=== PATIENT | female | born 1975 | race Caucasian/White ===

== ENCOUNTER 2023-08-03 13:38 | Outpatient (CLI) | payer BC | END 2023-08-03 13:39 | disposition home or self-care (01) | LOC: CSHLAB 13:38 | PROVIDERS: ATTEND Family Medicine | DX: Z01.812 Encounter for preprocedural laboratory examination (principal); N84.1 Polyp of cervix uteri | CPT/HCPCS: 84703; 85027; 86850; 86900; 86901 ==

== ENCOUNTER 2023-08-05 11:01 | Day surgery (SDC) | payer BC ==
[2023-08-03 14:05] VITALS: BMI 25.7
[2023-08-03 14:52] LABS: Hematocrit 39.7 % (34.9-44.5); Hemoglobin 13.1 g/dL (12.0-15.5); Mean Corpuscular Hemoglobin 31.4 pg (27.0-33.0); Mean Corpuscular Volume 95.2 fl (81.6-98.3); Mean Platelet Volume 12.2 fl (7.4-10.4); Platelet Count 181 10x3/uL (150-450); RBC Distribution Width 12.8 % (11.5-14.5); Red Blood Cell (RBC) Count 4.17 10x6/uL (3.90-5.03); White Blood Cell (WBC) Count 8.7 10x3/uL (3.5-10.5)
[2023-08-03 15:26] LABS: BHCG - Serum Negative (NEGATIVE); Pregs Control Bar Appear? YES (CONTROL BAR)
[2023-08-03 15:27] LABS: Pregs Control Background? CLEAR/WHITE (CLR/WHITE)
[2023-08-05] MEDS ORDERED: Famotidine/PF 20 mg/2ml Vial ONE (11:11)
[2023-08-05] MEDS ORDERED: CeleCOXIB 100 MG CAP ONE (11:11)
[2023-08-05] MEDS ORDERED: Lidocaine 2% PF 5 ML VIAL ONE (12:25)
[2023-08-05] MEDS ORDERED: PROPOFOL 20 ML ONE ×2 (12:25→12:39)
[2023-08-05] MEDS ORDERED: CEFAZOLIN 2 GM VIAL ONE (12:26)
[2023-08-05] MEDS ORDERED: Dexamethasone 4 mg/ml Vial ONE (12:42)
[2023-08-05] MEDS ORDERED: Ketorolac Tromethamine 30 MG/ML VIAL ONE (12:42)
[2023-08-05] MEDS ORDERED: Ondansetron PF 4 MG/2 ML Vial ONE (12:42)
== END 2023-08-05 14:50 | disposition home or self-care (01) ==
LOC: CSHSDC 11:01
PROVIDERS: ATTEND Obstetrics & Gynecology
PROC: 0UBC8ZZ Excision of Cervix, Via Natural or Artificial Opening Endoscopic (ICD-10-PCS; principal; 2023-08-05)
DX: N84.1 Polyp of cervix uteri (principal); N87.9 Dysplasia of cervix uteri, unspecified; E03.9 Hypothyroidism, unspecified; E72.12 Methylenetetrahydrofolate reductase deficiency
CPT/HCPCS: 36415; 84703; 85027; 86850; 86900; 86901; 88305; 88342; J1100; J1885; J2001; J2405; J2704; S0028